=== PATIENT | female | born 1950 | race African-American/Black ===

== ENCOUNTER 2017-06-24 16:59 | Emergency (ER) | payer MEDICAID, OTHER ==
[~2017-06-24] VITALS: Ht 167.6 cm; Wt 80.0 kg
[2017-06-24 20:44] VITALS: BP 145/86
== END 2017-06-24 20:47 | disposition home or self-care (01) ==
LOC: ER 18:04
DX: M25.512 Pain in left shoulder (principal); I10 Essential (primary) hypertension; E11.9 Type 2 diabetes mellitus without complications; V43.52XA Car driver injured in collision with other type car in traffic accident, initial encounter; Y93.89 Activity, other specified; Y92.488 Other paved roadways as the place of occurrence of the external cause
CPT/HCPCS: 70450; 73030; 99284; A4565